=== PATIENT | male | born 1965 | race Asian ===

== ENCOUNTER 2020-11-17 16:27 | Emergency (ER) | payer MEDICARE, MEDICAID ==
[~2020-11-17] VITALS: Ht 162.6 cm; Wt 59.1 kg
[2020-11-17 16:34] VITALS: BP 115/79
== END 2020-11-17 17:02 | disposition home or self-care (01) ==
LOC: EMS 16:29
DX: K02.9 Dental caries, unspecified (principal); F17.210 Nicotine dependence, cigarettes, uncomplicated; F12.90 Cannabis use, unspecified, uncomplicated
CPT/HCPCS: 99283; Z7502